=== PATIENT | male | born 1945 | race Caucasian/White ===

== ENCOUNTER 2017-03-16 12:20 | Inpatient (IN) | payer MEDICARE, OTHER ==
[2017-03-16] MEDS ORDERED: Ondansetron 4 MG/2 ML SDV IVPUSH STA (12:55)
[2017-03-16] MEDS ORDERED: Sodium Chloride 0.9% 1,000 ML IV SCH ×2 (13:00→18:15)
--- NOTE | 2017-03-16 13:02 | EDM.PDOC ---
ED HPI GENERAL MEDICAL PROBLEM - General Chief Complaint: Gastrointestinal Problem Stated Complaint: nausea/vomiting Time Seen by Provider: 03/16/17 12:47 Source of Information: Reports: Patient History Limitations: Reports: No Limitations - History of Present Illness INITIAL COMMENTS - FREE TEXT/NARRATIVE: Patient is a 71 year old male who presents to the ER with complaints of nausea, vomiting, and weakness. He reports that he first started feeling ill yesterday morning. He has been unable to eat or drink much. Has had a decreased appetite and hasn't been able to keep anything down except water yesterday and today. He reports he has vomited "numerous times." He also feels very weak. He hasn't been able to get out of bed since yesterday. Feel this has caused him to have a headache. Denies any fever or chills, but does report he woke up clammy last night. No blood in stool or vomit. No urinary symptoms. No recent illness or known exposure to ill people. Has not tried taking anything at home to relieve his symptoms. Onset Date: 03/15/17 Duration: Getting Worse Location: Reports: Generalized Improves with: Reports: None Worsens with: Reports: None Associated Symptoms: Reports: Headaches, Loss of Appetite, Nausea/Vomiting, Weakness. Denies: Confusion, Chest Pain, Cough, cough w sputum, Diaphoresis, Fever/Chills, Malaise, Shortness of Breath, Syncope Headache Pain Score (Numeric/FACES): 7 - Related Data Allergies Allergy/AdvReac Type Severity Reaction Status Date / Time No Known Allergies Allergy Verified 03/16/17 12:41 Home Meds: Home Meds . [No Known Home Meds] 03/16/17 [History] Past Medical History Cardiovascular History: Reports: Hypertension - Past Surgical History GI Surgical History: Reports: Cholecystectomy Musculoskeletal Surgical History: Reports: Other (See Below) Other Musculoskeletal Surgeries/Procedures:: TAILBONE REMOVAL, KNEE SURGERY Social & Family History - Tobacco Use Smoking Status *Q: Current Every Day Smoker Years of Tobacco use: 50 Packs/Tins Daily: 1.5 - Caffeine Use Caffeine Use: Reports: None - Recreational Drug Use Recreational Drug Use: No ED ROS GENERAL - Review of Systems Review Of Systems: See Below Constitutional: Reports: Weakness, Fatigue, Night Sweats, Decreased Appetite. Denies: Fever, Chills, Malaise, Diaphoresis HEENT: Reports: No Symptoms Respiratory: Reports: No Symptoms. Denies: Shortness of Breath Cardiovascular: Reports: No Symptoms. Denies: Chest Pain, Dyspnea on Exertion Endocrine: Reports: No Symptoms GI/Abdominal: Reports: Nausea, Vomiting. Denies: Abdominal Pain, Black Stool, Bloody Stool, Constipation, Diarrhea, Distension, Hematemesis, Hematochezia, Melena : Reports: No Symptoms. Denies: Dysuria, Frequency, Urgency Musculoskeletal: Reports: No Symptoms Skin: Reports: No Symptoms Neurological: Reports: Dizziness (lightheaded), Headache, Weakness (generalized) Psychiatric: Reports: No Symptoms Hematologic/Lymphatic: Reports: No Symptoms Immunologic: Reports: No Symptoms ED EXAM, GI/ABD - Physical Exam Exam: See Below Exam Limited By: No Limitations General Appearance: Alert, WD/WN, No Apparent Distress, Moderate Distress Eyes: Bilateral: Normal Appearance, EOMI Ears: Normal External Exam, Normal Canal, Hearing Grossly Normal, Normal TMs Nose: Normal Inspection, Normal Mucosa, No Blood Throat/Mouth: Normal Inspection, Normal Lips, Normal Teeth, Normal Gums, Normal Oropharynx, Normal Voice, No Airway Compromise, Other (dry mucous membranes) Head: Atraumatic, Normocephalic Neck: Normal Inspection, Supple, Non-Tender, Full Range of Motion Respiratory/Chest: No Respiratory Distress, Lungs Clear, Normal Breath Sounds, No Accessory Muscle Use, Chest Non-Tender Cardiovascular: Normal Peripheral Pulses, Regular Rate, Rhythm, No Edema, No Gallop, No JVD, No Murmur, No Rub GI/Abdominal Exam: Normal Bowel Sounds, Soft, Non-Tender, No Organomegaly, No Distention, No Abnormal Bruit, No Mass, Pelvis Stable (Male) Exam: Deferred Rectal (Males) Exam: Deferred Back Exam: Normal Inspection. No: CVA Tenderness (L), CVA Tenderness (R) Extremities: Normal Inspection, Normal Range of Motion, Non-Tender, Normal Capillary Refill, No Pedal Edema Neurological: Alert, Oriented, CN II-XII Intact, Normal Cognition, Normal Gait, Normal Reflexes, No Motor/Sensory Deficits Psychiatric: Normal Affect, Normal Mood Skin Exam: Warm, Dry, Intact, Normal Color, No Rash Lymphatic: No Adenopathy Course - Vital Signs Last Recorded V/S: Last Vital Signs Temp 99.1 F 03/17/17 04:00 Pulse 67 03/17/17 04:00 Resp 20 03/17/17 04:00 BP 154/88 H 03/17/17 04:00 Pulse Ox 93 L 03/17/17 04:00 - Orders/Labs/Meds Orders: Active Orders 24 hr Category Date Time Status Patient Status [ADT] Routine ADT 03/16/17 18:09 Active Oxygen Therapy [RC] .PRN Care 03/16/17 18:09 Active RT Aerosol Therapy [RC] .PRN Care 03/16/17 18:14 Active Up With Assistance [RC] .PRN Care 03/16/17 18:09 Active Vital Signs [RC] Q4H Care 03/16/17 18:09 Active Regular Diet [DIET] Diet 03/16/17 Dinner Active Abdomen Pelvis w Cont [CT] Stat Exams 03/16/17 14:59 Taken BMP [BASIC METABOLIC PANEL,BMP] [CHEM] DAILY Lab 03/17/17 05:00 Ordered BMP [BASIC METABOLIC PANEL,BMP] [CHEM] DAILY Lab 03/18/17 05:00 Ordered BMP [BASIC METABOLIC PANEL,BMP] [CHEM] DAILY Lab 03/19/17 05:00 Ordered CBC WITH AUTO DIFF [HEME] DAILY Lab 03/17/17 18:08 Ordered CBC WITH AUTO DIFF [HEME] DAILY Lab 03/18/17 18:08 Ordered CBC WITH AUTO DIFF [HEME] DAILY Lab 03/19/17 18:08 Ordered CRP [C-REACTIVE PROTEIN] [CHEM] DAILY Lab 03/17/17 05:00 Ordered CRP [C-REACTIVE PROTEIN] [CHEM] DAILY Lab 03/18/17 05:00 Ordered CRP [C-REACTIVE PROTEIN] [CHEM] DAILY Lab 03/19/17 05:00 Ordered CULTURE BLOOD [BC] Stat Lab 03/16/17 19:30 Received CULTURE BLOOD [BC] Stat Lab 03/16/17 19:35 Received Acetaminophen [Tylenol] Med 03/16/17 18:09 Active 650 mg PO Q4H PRN Albuterol/Ipratropium [DuoNeb 3.0-0.5 MG/3 ML] Med 03/16/17 18:09 Active 3 ml NEB Q4H PRN Docusate Sodium [Colace] Med 03/16/17 18:09 Active 100 mg PO BID PRN HYDROmorphone [Dilaudid] Med 03/16/17 18:09 Active 0.5 mg IVPUSH Q2H PRN Ibuprofen [Motrin] Med 03/16/17 18:09 Active 600 mg PO Q6H PRN Ondansetron [Zofran] Med 03/16/17 18:09 Active 4 mg IV Q6H PRN Polyethylene Glycol 3350 [MiraLAX] Med 03/16/17 18:09 Active 17 gm PO DAILY PRN Sodium Chloride 0.9% [Normal Saline] 1,000 ml Med 03/16/17 18:15 Active IV ASDIRECTED Temazepam [Restoril] Med 03/16/17 18:09 Active 15 mg PO BEDTIME PRN cefTRIAXone [Rocephin] Med 03/16/17 18:15 Active 1 gm IVPUSH Q24H Blood Culture x2 Reflex Set [OM.PC] Stat Oth 03/16/17 18:06 Ordered Resuscitation Status Routine Resus Stat 03/16/17 18:09 Ordered Medication Orders Acetaminophen (Tylenol) 650 mg PO Q4H PRN PRN Reason: Pain (Mild 1-3)/fever Last Admin: 03/16/17 20:05 Dose: 650 mg Albuterol/Ipratropium (Duoneb 3.0-0.5 Mg/3 Ml) 3 ml NEB Q4H PRN PRN Reason: Shortness Of Breath/wheezing Albuterol/Ipratropium (Duoneb 3.0-0.5 Mg/3 Ml) 3 ml NEB 0800,1200,1600,2000 [facility] Last Admin: 03/16/17 22:31 Dose: 3 ml Azithromycin (Zithromax) 500 mg PO DAILY [facility] Last Admin: 03/16/17 18:45 Dose: 500 mg Ceftriaxone Sodium (Rocephin) 1 gm IVPUSH Q24H [facility] Last Admin: 03/16/17 18:45 Dose: 1 gm Docusate Sodium (Colace) 100 mg PO BID PRN PRN Reason: Constipation Enoxaparin Sodium (Lovenox) 40 mg SUBCUT Q24H [facility] Last Admin: 03/16/17 20:06 Dose: 40 mg Hydromorphone HCl (Dilaudid) 0.5 mg IVPUSH Q2H PRN PRN Reason: Pain (severe 7-10) Sodium Chloride (Normal Saline) 1,000 mls @ 75 mls/hr IV ASDIRECTED THONY Last Admin: 03/16/17 20:07 Dose: 75 mls/hr Ibuprofen (Motrin) 600 mg PO Q6H PRN PRN Reason: Pain (mild 1-3) Nicotine (Habitrol) 21 mg TRDERM DAILY@1600 [facility] Ondansetron HCl (Zofran) 4 mg IV Q6H PRN PRN Reason: Nausea/Vomiting Polyethylene Glycol (Miralax) 17 gm PO DAILY PRN PRN Reason: Constipation Temazepam (Restoril) 15 mg PO BEDTIME PRN PRN Reason: Sleep Labs: Laboratory Tests 03/16/17 03/16/17 03/16/17 Range/Units 13:05 13:05 14:45 WBC 10.9 H (5.0-10.0) 10^3/uL RBC 4.81 (4.50-6.00) 10^6/uL Hgb 15.8 (14.0-18.0) g/dL Hct 46.4 (40.0-54.0) % MCV 96.5 H (82.0-94.0) fL MCH 32.8 H (27.0-32.0) pg MCHC 34.1 (33.0-38.0) g/dL RDW Coeff of Inés 14.9 (11.0-15.0) % Plt Count 181 (150-400) 10^3/uL Neut % (Auto) 80.1 (35-85) % Lymph % (Auto) 11.0 (10-55) % [place] % (Auto) 8.6 (0-16) % Eos % (Auto) 0.2 (0-5) % Baso % (Auto) 0.1 (0-3) % Neut # (Auto) 8.70 H (1.80-7.00) 10^3/uL Lymph # (Auto) 1.20 (1.00-4.80) 10^3/uL [place] # (Auto) 0.93 H (0.00-0.80) 10^3/uL Eos # (Auto) 0.02 (0.00-0.45) 10^3/uL Baso # (Auto) 0.01 10^3/uL Sodium 135 L (136-145) mEq/L Potassium 3.9 (3.5-5.0) mEq/L Chloride 98 (98-106) mEq/L Carbon Dioxide 25 (21-32) mmol/L BUN 13 (7-18) mg/dL Creatinine 1.0 (0.7-1.3) mg/dL Est Cr Clr Drug Dosing 74.37 mL/min Estimated GFR (MDRD) > 60 (>=60) mL/min Glucose 112 H (75-99) mg/dL Calcium 8.9 (8.4-10.1) mg/dL Total Bilirubin 0.9 (0.0-1.0) mg/dL AST 19 (15-37) U/L ALT 24 (12-78) U/L Alkaline Phosphatase 88 (46-116) U/L Troponin I < 0.017 (0.00-0.06) ng/mL Total Protein 7.3 (6.4-8.2) g/dL Albumin 3.3 L (3.4-5.0) g/dL Urine Color Yellow (YELLOW) Urine Appearance Clear (CLEAR) Urine pH 7.0 (4.5-8.0) Ur Specific [place] 1.015 (1.003-1.020) Urine Protein Negative (NEGATIVE) mg/dL Urine Glucose (UA) Negative (NEGATIVE) mg/dL Urine Ketones Negative (NEGATIVE) mg/dL Urine Occult Blood Small H (NEGATIVE) Urine Nitrite Negative (NEGATIVE) Urine Bilirubin Negative (NEGATIVE) Urine Urobilinogen 1.0 (0.2-1.0) EU/dL Ur Leukocyte Esterase Trace H (NEGATIVE) Urine RBC 5-10 H (0-5) /HPF Urine WBC 0-5 (0-5) /HPF Ur Epithelial Cells Occasional H (NOT SEEN) /HPF Meds: Medications Generic Name Dose Route Start Last Admin Trade Name Freq PRN Reason Stop Dose Admin Acetaminophen 650 mg 03/16/17 18:09 03/16/17 20:05 Tylenol PO 650 mg Q4H PRN Administration Pain (Mild 1-3)/fever Albuterol/Ipratropium 3 ml 03/16/17 18:09 Duoneb 3.0-0.5 Mg/3 Ml NEB Q4H PRN Shortness Of Breath/wheezing Albuterol/Ipratropium 3 ml 03/16/17 20:23 03/16/17 22:31 Duoneb 3.0-0.5 Mg/3 Ml NEB 3 ml 0800,1200,1600,2000 THONY Administration Azithromycin 500 mg 03/16/17 18:15 03/16/17 18:45 Zithromax PO 500 mg DAILY THONY Administration Ceftriaxone Sodium 1 gm 03/16/17 18:15 03/16/17 18:45 Rocephin IVPUSH 1 gm Q24H THONY Administration Docusate Sodium 100 mg 03/16/17 18:09 Colace PO BID PRN Constipation Enoxaparin Sodium 40 mg 03/16/17 20:00 03/16/17 20:06 Lovenox SUBCUT 40 mg Q24H THONY Administration Hydromorphone HCl 0.5 mg 03/16/17 18:09 Dilaudid IVPUSH Q2H PRN Pain (severe 7-10) Sodium Chloride 1,000 mls @ 75 mls/hr 03/16/17 18:15 03/16/17 20:07 Normal Saline IV 75 mls/hr ASDIRECTED THONY Administration Ibuprofen 600 mg 03/16/17 18:09 Motrin PO Q6H PRN Pain (mild 1-3) Nicotine 21 mg 03/17/17 16:00 Habitrol TRDERM DAILY@1600 THONY Ondansetron HCl 4 mg 03/16/17 18:09 Zofran IV Q6H PRN Nausea/Vomiting Polyethylene Glycol 17 gm 03/16/17 18:09 Miralax PO DAILY PRN Constipation Temazepam 15 mg 03/16/17 18:09 Restoril PO BEDTIME PRN Sleep Discontinued Medications Generic Name Dose Route Start Last Admin Trade Name Freq PRN Reason Stop Dose Admin Sodium Chloride 1,000 mls @ 999 mls/hr 03/16/17 13:00 03/16/17 13:20 Normal Saline IV 999 mls/hr ASDIRECTED THONY Administration Iopamidol 100 ml 03/16/17 15:28 03/16/17 15:44 Isovue-300 (61%) IVPUSH 03/16/17 15:29 100 ml ONETIME ONE Administration Nicotine 21 mg 03/16/17 13:46 03/16/17 16:15 Habitrol TRDERM 03/16/17 13:47 21 mg ONETIME ONE Administration Ondansetron HCl 4 mg 03/16/17 12:55 03/16/17 13:22 Zofran IVPUSH 03/16/17 12:56 4 mg NOW STA Administration - Radiology Interpretation Free Text/Narrative:: Atelectatic changes over the lung bases on either side with a ground-glass appearance suggesting diffuse pneumonitis to the lung bases. CT Results Date: 03/16/17 CT Results Time: 16:53 - Re-Assessments/Exams Free Text/Narrative Re-Assessment/Exam: 03/16/17 15:05 CT Abdomen/Pelvis ordered. Patient has leukocytosis, continued nausea, and a large abdominal hernia. 03/16/17 18:03 Patient will be admitted as acute. Patient has been weak, lightheaded, 94% O2 Sat on RA, and CT shows bilateral pneumonitis. Patient feels too weak to go home. Departure - Departure Time of Disposition: 17:56 Disposition: Admitted As Inpatient 66 Condition: Fair Clinical Impression: Vomiting Pneumonia Qualifiers: Pneumonia type: due to unspecified organism Laterality: bilateral Lung location : lower lobe of lung Qualified Code(s): J18.9 - Pneumonia, unspecified organism - Discharge Information - Problem List & Annotations (1) Generalized weakness SNOMED Code(s): 04997950 Code(s): R53.1 - WEAKNESS Status: Acute Priority: Medium Current Visit : Yes (2) Pneumonia SNOMED Code(s): 501610426 Code(s): J18.9 - PNEUMONIA, UNSPECIFIED ORGANISM Status: Acute Priority: High Current Visit: Yes Qualifiers: Pneumonia type: due to unspecified organism Laterality: bilateral Lung location: lower lobe of lung Qualified Code(s): J18.9 - Pneumonia, unspecified organism (3) Vomiting SNOMED Code(s): 329152898 Code(s): R11.10 - VOMITING, UNSPECIFIED Status: Acute Current Visit: Yes - Problem List Review Problem List Initiated/Reviewed/Updated: Yes - My Orders Last 24 Hours: My Active Orders 03/16/17 14:59 Abdomen Pelvis w Cont [CT] Stat 03/16/17 18:06 Blood Culture x2 Reflex Set [OM.PC] Stat 03/16/17 18:09 Patient Status [ADT] Routine Oxygen Therapy [RC] .PRN Up With Assistance [RC] .PRN Vital Signs [RC] Q4H Acetaminophen [Tylenol] 650 mg PO Q4H PRN Albuterol/Ipratropium [DuoNeb 3.0-0.5 MG/3 ML] 3 ml NEB Q4H PRN Docusate Sodium [Colace] 100 mg PO BID PRN HYDROmorphone [Dilaudid] 0.5 mg IVPUSH Q2H PRN Ibuprofen [Motrin] 600 mg PO Q6H PRN Ondansetron [Zofran] 4 mg IV Q6H PRN Polyethylene Glycol 3350 [MiraLAX] 17 gm PO DAILY PRN Temazepam [Restoril] 15 mg PO BEDTIME PRN Resuscitation Status Routine 03/16/17 18:14 RT Aerosol Therapy [RC] .PRN 03/16/17 18:15 Sodium Chloride 0.9% [Normal Saline] 1,000 ml IV ASDIRECTED cefTRIAXone [Rocephin] 1 gm IVPUSH Q24H 03/16/17 19:30 CULTURE BLOOD [BC] Stat 03/16/17 19:35 CULTURE BLOOD [BC] Stat 03/16/17 Dinner Regular Diet [DIET] 03/17/17 05:00 BMP [BASIC METABOLIC PANEL,BMP] [CHEM] DAILY CRP [C-REACTIVE PROTEIN] [CHEM] DAILY 03/17/17 18:08 CBC WITH AUTO DIFF [HEME] DAILY 03/18/17 05:00 BMP [BASIC METABOLIC PANEL,BMP] [CHEM] DAILY CRP [C-REACTIVE PROTEIN] [CHEM] DAILY 03/18/17 18:08 CBC WITH AUTO DIFF [HEME] DAILY 03/19/17 05:00 BMP [BASIC METABOLIC PANEL,BMP] [CHEM] DAILY CRP [C-REACTIVE PROTEIN] [CHEM] DAILY 03/19/17 18:08 CBC WITH AUTO DIFF [HEME] DAILY - Assessment/Plan Last 24 Hours: My Active Orders 03/16/17 14:59 Abdomen Pelvis w Cont [CT] Stat 03/16/17 18:06 Blood Culture x2 Reflex Set [OM.PC] Stat 03/16/17 18:09 Patient Status [ADT] Routine Oxygen Therapy [RC] .PRN Up With Assistance [RC] .PRN Vital Signs [RC] Q4H Acetaminophen [Tylenol] 650 mg PO Q4H PRN Albuterol/Ipratropium [DuoNeb 3.0-0.5 MG/3 ML] 3 ml NEB Q4H PRN Docusate Sodium [Colace] 100 mg PO BID PRN HYDROmorphone [Dilaudid] 0.5 mg IVPUSH Q2H PRN Ibuprofen [Motrin] 600 mg PO Q6H PRN Ondansetron [Zofran] 4 mg IV Q6H PRN Polyethylene Glycol 3350 [MiraLAX] 17 gm PO DAILY PRN Temazepam [Restoril] 15 mg PO BEDTIME PRN Resuscitation Status Routine 03/16/17 18:14 RT Aerosol Therapy [RC] .PRN 03/16/17 18:15 Sodium Chloride 0.9% [Normal Saline] 1,000 ml IV ASDIRECTED cefTRIAXone [Rocephin] 1 gm IVPUSH Q24H 03/16/17 19:30 CULTURE BLOOD [BC] Stat 03/16/17 19:35 CULTURE BLOOD [BC] Stat 03/16/17 Dinner Regular Diet [DIET] 03/17/17 05:00 BMP [BASIC METABOLIC PANEL,BMP] [CHEM] DAILY CRP [C-REACTIVE PROTEIN] [CHEM] DAILY 03/17/17 18:08 CBC WITH AUTO DIFF [HEME] DAILY 03/18/17 05:00 BMP [BASIC METABOLIC PANEL,BMP] [CHEM] DAILY CRP [C-REACTIVE PROTEIN] [CHEM] DAILY 03/18/17 18:08 CBC WITH AUTO DIFF [HEME] DAILY 03/19/17 05:00 BMP [BASIC METABOLIC PANEL,BMP] [CHEM] DAILY CRP [C-REACTIVE PROTEIN] [CHEM] DAILY 03/19/17 18:08 CBC WITH AUTO DIFF [HEME] DAILY Assessment:: Bilateral Lower Lobe Pneumonia Plan: SEE RN NOTE FOR PFSH Admit to acute without tele. Start IV antibiotics and duo nebs PRN.
[2017-03-16 13:24] LABS: CHLORIDE,CL 98 mEq/L (98-106)
[2017-03-16 13:25] LABS: SODIUM,NA 135 mEq/L (136-145)
[2017-03-16] MEDS ORDERED: Nicotine 21 MG/24 Hr Patch TRDERM ONE (13:46)
[2017-03-16] MEDS ORDERED: Iopamidol 612 MG/ML 100 ML Bottle IVPUSH ONE (15:28)
[2017-03-16] MEDS ORDERED: Polyethylene Glycol 3350 Powder 17 GM Packet PO PRN (18:09)
[2017-03-16] MEDS ORDERED: Ibuprofen 200 MG Tab PO PRN (18:09)
[2017-03-16] MEDS ORDERED: Temazepam 15 MG Cap PO PRN (18:09)
[2017-03-16] MEDS ORDERED: Ondansetron 4 MG/2 ML SDV IV PRN (18:09)
[2017-03-16] MEDS ORDERED: HYDROmorphone 1 MG/ML Syringe IVPUSH PRN (18:09)
[2017-03-16] MEDS ORDERED: Docusate Sodium 100 MG Cap PO PRN (18:09)
[2017-03-16] MEDS ORDERED: Albuterol/Ipratropium 3.0-0.5 MG/3 ML Neb Soln NEB PRN (18:09)
[2017-03-16] MEDS ORDERED: cefTRIAXone 1 GM Vial IVPUSH SCH (18:15)
[2017-03-16] MEDS: Azithromycin 250 MG Tab PO SCH (18:45)
[2017-03-16] MEDS ORDERED: Enoxaparin 40 MG/0.4 ML Syringe SUBCUT SCH (20:00)
[2017-03-16] MEDS: Acetaminophen 325 MG Tab PO PRN (20:05)
[2017-03-16] MEDS: Sodium Chloride 0.9% 1,000 ML IV SCH (20:07)
[2017-03-16] MEDS: Albuterol/Ipratropium 3.0-0.5 MG/3 ML Neb Soln NEB SCH (22:31)
--- NOTE | 2017-03-17 05:24 | PCM.PN ---
- General Info Date of Service: 03/17/17 Admission Dx/Problem (Free Text): Bilateral Pneumonia Subjective Update: No acute issues overnight. Low grade temperature throughout night. Patient reports he now has productive cough. Some shortness of breath. O2 sat 93-94% on RA. Nausea has improved. Has not vomited since admission. On IV and PO antibiotics (Rocephin and azithromax). Duo nebs QID. Still has generalized weakness. Nursing reports he is unsteady on his feet. Functional Status: Reports: Pain Controlled, Tolerating Diet, Ambulating, Urinating, New Symptoms (productive cough, fever) - Review of Systems General: Reports: Fever, Weakness, Fatigue. Denies: Malaise, Chills HEENT: Reports: No Symptoms. Denies: Headaches, Sinus Congestion Pulmonary: Reports: Shortness of Breath (with exertion), Cough, Sputum. Denies : Pleuritic Chest Pain, Hemoptysis, Wheezing Cardiovascular: Reports: Dyspnea on Exertion. Denies: Chest Pain, Lightheadedness Gastrointestinal: Reports: No Symptoms. Denies: Abdominal Pain, Diarrhea, Nausea, Vomiting Genitourinary: Reports: No Symptoms. Denies: Dysuria, Frequency, Urgency Musculoskeletal: Reports: No Symptoms (generalized weakness) Skin: Reports: No Symptoms Neurological: Reports: No Symptoms. Denies: Confusion, Dizziness, Headache Psychiatric: Reports: No Symptoms - Patient Data Vitals - Most Recent: Last Vital Signs Temp 99.1 F 03/17/17 04:00 Pulse 67 03/17/17 04:00 Resp 20 03/17/17 04:00 BP 154/88 H 03/17/17 04:00 Pulse Ox 93 L 03/17/17 04:00 Weight - Most Recent: 208 lb 1.6 oz Lab Results Last 24 Hours: Laboratory Results - last 24 hr 03/16/17 03/16/17 Range/Units 19:30 19:35 Lactic Acid 1.0 (0.4-2.0) mmol/L C-Reactive Protein 0.8 (0.2-0.8) mg/dL Med Orders - Current: Current Medications Acetaminophen (Tylenol) 650 mg PO Q4H PRN PRN Reason: Pain (Mild 1-3)/fever Last Admin: 03/16/17 20:05 Dose: 650 mg Albuterol/Ipratropium (Duoneb 3.0-0.5 Mg/3 Ml) 3 ml NEB Q4H PRN PRN Reason: Shortness Of Breath/wheezing Albuterol/Ipratropium (Duoneb 3.0-0.5 Mg/3 Ml) 3 ml NEB 0800,1200,1600,2000 [facility] Last Admin: 03/16/17 22:31 Dose: 3 ml Azithromycin (Zithromax) 500 mg PO DAILY [facility] Last Admin: 03/16/17 18:45 Dose: 500 mg Ceftriaxone Sodium (Rocephin) 1 gm IVPUSH Q24H [facility] Last Admin: 03/16/17 18:45 Dose: 1 gm Docusate Sodium (Colace) 100 mg PO BID PRN PRN Reason: Constipation Enoxaparin Sodium (Lovenox) 40 mg SUBCUT Q24H [facility] Last Admin: 03/16/17 20:06 Dose: 40 mg Hydromorphone HCl (Dilaudid) 0.5 mg IVPUSH Q2H PRN PRN Reason: Pain (severe 7-10) Sodium Chloride (Normal Saline) 1,000 mls @ 75 mls/hr IV ASDIRECTED [facility] Last Admin: 03/16/17 20:07 Dose: 75 mls/hr Ibuprofen (Motrin) 600 mg PO Q6H PRN PRN Reason: Pain (mild 1-3) Nicotine (Habitrol) 21 mg TRDERM DAILY@1600 [facility] Ondansetron HCl (Zofran) 4 mg IV Q6H PRN PRN Reason: Nausea/Vomiting Polyethylene Glycol (Miralax) 17 gm PO DAILY PRN PRN Reason: Constipation Temazepam (Restoril) 15 mg PO BEDTIME PRN PRN Reason: Sleep Discontinued Medications Sodium Chloride (Normal Saline) 1,000 mls @ 999 mls/hr IV ASDIRECTED [facility] Last Admin: 03/16/17 13:20 Dose: 999 mls/hr Iopamidol (Isovue-300 (61%)) 100 ml IVPUSH ONETIME ONE Stop: 03/16/17 15:29 Last Admin: 03/16/17 15:44 Dose: 100 ml Nicotine (Habitrol) 21 mg TRDERM ONETIME ONE Stop: 03/16/17 13:47 Last Admin: 03/16/17 16:15 Dose: 21 mg Ondansetron HCl (Zofran) 4 mg IVPUSH NOW STA Stop: 03/16/17 12:56 Last Admin: 03/16/17 13:22 Dose: 4 mg - Exam Quality Assessment: DVT Prophylaxis General: Alert, Oriented, No Acute Distress HEENT: Pupils Equal, Pupils Reactive, EOMI, Mucous Membr. Moist/[place] Neck: Supple, Trachea Midline Lungs: Normal Respiratory Effort, Decreased Breath Sounds (bilateral bases), Other (productive cough) Cardiovascular: Regular Rate, Regular Rhythm, No Murmurs GI/Abdominal Exam: Normal Bowel Sounds, Soft, Non-Tender, No Organomegaly, No Distention, No Abnormal Bruit, No Mass, Pelvis Stable (Male) Exam: Deferred Back Exam: Normal Inspection, Full Range of Motion Extremities: Normal Inspection, Normal Range of Motion, Non-Tender, No Pedal Edema, Normal Capillary Refill Skin: Warm, Dry, Intact Neurological: No New Focal Deficit, Normal Speech, Strength Equal Bilateral, Sensation Intact, Cranial Nerves Intact, Other (unsteady on his feet, generalized weakness) Psy/Mental Status: Alert, Normal Affect, Normal Mood - Problem List & Annotations (1) Generalized weakness SNOMED Code(s): 02639855 Code(s): R53.1 - WEAKNESS Status: Acute Priority: Medium Current Visit : Yes (2) Pneumonia SNOMED Code(s): 611800989 Code(s): J18.9 - PNEUMONIA, UNSPECIFIED ORGANISM Status: Acute Priority: High Current Visit: Yes Qualifiers: Pneumonia type: due to unspecified organism Laterality: bilateral Lung location: lower lobe of lung Qualified Code(s): J18.9 - Pneumonia, unspecified organism (3) Vomiting SNOMED Code(s): 943711252 Code(s): R11.10 - VOMITING, UNSPECIFIED Status: Acute Priority: Low Current Visit: Yes Annotation/Comment:: Resolved - Problem List Review Problem List Initiated/Reviewed/Updated: Yes - Assessment Assessment:: Bilateral Pneumonia Generalized Weakness Leukocytosis Nausea & Vomiting- resolved - Plan Plan:: Will culture sputum. Sputum culture showing gram positive cocci. Continue current treatment, Rocephin, azithromax, and duo nebs.
[2017-03-17 07:25] LABS: CHLORIDE,CL 103 mEq/L (98-106); SODIUM,NA 138 mEq/L (136-145)
[2017-03-17] MEDS: Azithromycin 250 MG Tab PO SCH (07:30)
[2017-03-17] MEDS: Albuterol/Ipratropium 3.0-0.5 MG/3 ML Neb Soln NEB SCH ×3 (07:31→15:32)
[2017-03-17] MEDS: Acetaminophen 325 MG Tab PO PRN ×3 (07:45→15:34)
[2017-03-17] MEDS: Sodium Chloride 0.9% 1,000 ML IV SCH (09:21)
--- NOTE | 2017-03-17 14:15 | PCM.DCSUM1 ---
Discharge Summary - Hospital Course HPI Initial Comments: Patient admitted 03/16/2017 with bilateral pneumonia. Originally presented to the ER with complaints of nausea, vomiting, and generalized weakness. He reports he began feeling ill the morning of 03/15/2017. He was unable to eat or drink without vomiting. He reported he had vomited "numerous times" and was unable to keep any fluids down. He also complained of a headache at the time of admission, but reported he had been lying in bed for two days and felt this was related to neck strain. At ER presentation, neuro exam was WNL except headache and generalized weakness. Patient was started on IV antibiotics for bilateral lower lobe pneumonia and was admitted. Patient's headache resolved following IVF bolus. Throughout the evening patient developed a productive cough. Sputum was cultured showing gram positive cocci. This morning, nursing called with concerns of gait ataxia. They reported he was getting increasingly unsteady on his feet and was starting to lean to his left when ambulating. I then went to patient's bedside. Neuro assessment was WNL except bilateral upper extremity ataxia, which was a change from neuro assessment on admission. NIH 2. Did not visualize ambulation. Head CT was ordered. 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 The radiologist reported the affected area had mass like effect, crossed midline, and was heterogeneous in appearance. He suggested MRI. [facility] was called. Patient was accepted for transfer by Dr. Zafar. [facility] agreed to transfer ALS due to neurological deficit of gait ataxia. Throughout hospital stay, patient was hemodynamically stable, alert and oriented, and in no respiratory distress. After receiving head CT results, I spoke with the patient and his and discussed findings. Patient and agreeable for transfer to [place]. Risks and benefits of transfer discussed with patient. Risks of transfer include vehicle crash, , neurological deterioration, respiratory distress. Risks of non- transfer include , neurological deterioration, respiratory distress, no neurosurgeon/ specialized care. Benefits of transfer include specialized neurosurgical evaluation and care, and higher level of care. Benefits of non- transfer include staying closer to home and familiar environment. After discussion of risks vs. benefits, patient is agreeable to transfer to [facility] via ALS ground transportation. - Discharge Data Discharge Date: 03/17/17 Discharge Disposition: DC/Tfer to Acute Hospital 02 Condition: Fair - Discharge Diagnosis/Problem(s) (1) Generalized weakness SNOMED Code(s): 67516051 ICD Code: R53.1 - WEAKNESS Status: Acute Priority: Medium Current Visit : Yes (2) Pneumonia SNOMED Code(s): 935579408 ICD Code: J18.9 - PNEUMONIA, UNSPECIFIED ORGANISM Status: Acute Priority : High Current Visit: Yes Qualifiers: Pneumonia type: due to unspecified organism Laterality: bilateral Lung location: lower lobe of lung Qualified Code(s): J18.9 - Pneumonia, unspecified organism (3) Vomiting SNOMED Code(s): 042325787 ICD Code: R11.10 - VOMITING, UNSPECIFIED Status: Acute Priority: Low Current Visit: Yes Problem Details: Resolved (4) Ataxic gait SNOMED Code(s): 61226522 ICD Code: R26.0 - ATAXIC GAIT Status: Acute Current Visit: Yes (5) Cerebellar mass SNOMED Code(s): 14601581 ICD Code: G93.89 - OTHER SPECIFIED DISORDERS OF BRAIN Status: Acute Priority: High Current Visit: Yes - Patient Instructions Diet: NPO Activity: Bedrest Driving: Do Not Drive - Discharge Plan Home Medications: Home Meds . [No Known Home Meds] 03/16/17 [History] Forms: ED Department Discharge - General Info Date of Service: 03/17/17 Admission Dx/Problem (Free Text: Bilateral Pneumonia Right Cerebellar Mass Gait Ataxia Generalized Weakness Functional Status: Reports: Pain Controlled, Urinating, New Symptoms (gait ataxia). Denies: Tolerating Diet (decreased appetite, slightly nauseated, no vomiting), Ambulating (difficulty with ambulating, unsteady) - Review of Systems General: Reports: Fever (low grade), Weakness, Fatigue. Denies: Appetite (poor appetite) HEENT: Reports: Headaches (slight posterior headache). Denies: Dysphasia, Ear Pain, Eye Pain, Post Nasal Drip, Sinus Congestion, Sore Throat, Rhinitis, Visual Changes Pulmonary: Reports: Cough, Sputum. Denies: Shortness of Breath, Pleuritic Chest Pain, Hemoptysis, Wheezing Cardiovascular: Reports: Dyspnea on Exertion. Denies: Chest Pain, Palpitations , Orthopnea, PND, Edema, Lightheadedness Gastrointestinal: Reports: Decreased Appetite, Nausea. Denies: Abdominal Pain, Constipation, Diarrhea, Difficulty Swallowing, Flatus, Hematochezia, Melena, Vomiting Genitourinary: Reports: No Symptoms. Denies: Dysuria, Frequency, Pain, Urgency , Hematuria, Retention Musculoskeletal: Reports: Neck Pain, Other (upper extremity ataxia). Denies: Shoulder Pain, Arm Pain, Back Pain, Leg Pain, Joint Pain Skin: Reports: No Symptoms. Denies: Diaphoresis Neurological: Reports: Headache (slight posterior headache), Difficulty Walking (gait ataxia, leans to left), Weakness, Gait Disturbance (gait ataxia). Denies : Confusion, Dizziness, Numbness, Paresthesia, Pre-Existing Deficit, Seizure, Syncope, Tingling, Tremors, Trouble Speaking, Change in Speech - Patient Data Vitals - Most Recent: Last Vital Signs Temp 98.1 F 03/17/17 11:57 Pulse 67 03/17/17 11:57 Resp 20 03/17/17 11:57 BP 152/89 H 03/17/17 11:57 Pulse Ox 96 03/17/17 11:57 Weight - Most Recent: 208 lb 1.6 oz I&O - Last 24 hours: Intake & Output 03/16/17 03/17/17 03/17/17 22:59 06:59 14:59 Intake Total 1192 Balance 1192 Lab Results - Last 24 hrs: Laboratory Results - last 24 hr 03/16/17 03/16/17 03/17/17 Range/Units 19:30 19:35 06:50 WBC (5.0-10.0) 10^3/uL RBC (4.50-6.00) 10^6/uL Hgb (14.0-18.0) g/dL Hct (40.0-54.0) % MCV (82.0-94.0) fL MCH (27.0-32.0) pg MCHC (33.0-38.0) g/dL RDW Coeff of Inés (11.0-15.0) % Plt Count (150-400) 10^3/uL Neut % (Auto) (35-85) % Lymph % (Auto) (10-55) % [place] % (Auto) (0-16) % Eos % (Auto) (0-5) % Baso % (Auto) (0-3) % Neut # (Auto) (1.80-7.00) 10^3/uL Lymph # (Auto) (1.00-4.80) 10^3/uL [place]oke # (Auto) (0.00-0.80) 10^3/uL Eos # (Auto) (0.00-0.45) 10^3/uL Baso # (Auto) 10^3/uL Sodium 138 (136-145) mEq/L Potassium 3.8 (3.5-5.0) mEq/L Chloride 103 (98-106) mEq/L Carbon Dioxide 24 (21-32) mmol/L BUN 13 (7-18) mg/dL Creatinine 1.1 (0.7-1.3) mg/dL Est Cr Clr Drug Dosing 67.61 mL/min Estimated GFR (MDRD) > 60 (>=60) mL/min Glucose 112 H (75-99) mg/dL Lactic Acid 1.0 (0.4-2.0) mmol/L Calcium 8.5 (8.4-10.1) mg/dL C-Reactive Protein 0.8 1.2 H (0.2-0.8) mg/dL 03/17/17 Range/Units 06:50 WBC 9.3 (5.0-10.0) 10^3/uL RBC 4.75 (4.50-6.00) 10^6/uL Hgb 15.6 (14.0-18.0) g/dL Hct 46.5 (40.0-54.0) % MCV 97.9 H (82.0-94.0) fL MCH 32.8 H (27.0-32.0) pg MCHC 33.5 (33.0-38.0) g/dL RDW Coeff of Inés 15.2 H (11.0-15.0) % Plt Count 187 (150-400) 10^3/uL Neut % (Auto) 73.5 (35-85) % Lymph % (Auto) 16.5 (10-55) % [place]oke % (Auto) 9.6 (0-16) % Eos % (Auto) 0.2 (0-5) % Baso % (Auto) 0.2 (0-3) % Neut # (Auto) 6.86 (1.80-7.00) 10^3/uL Lymph # (Auto) 1.54 (1.00-4.80) 10^3/uL [place]oke # (Auto) 0.90 H (0.00-0.80) 10^3/uL Eos # (Auto) 0.02 (0.00-0.45) 10^3/uL Baso # (Auto) 0.02 10^3/uL Sodium (136-145) mEq/L Potassium (3.5-5.0) mEq/L Chloride (98-106) mEq/L Carbon Dioxide (21-32) mmol/L BUN (7-18) mg/dL Creatinine (0.7-1.3) mg/dL Est Cr Clr Drug Dosing mL/min Estimated GFR (MDRD) (>=60) mL/min Glucose (75-99) mg/dL Lactic Acid (0.4-2.0) mmol/L Calcium (8.4-10.1) mg/dL C-Reactive Protein (0.2-0.8) mg/dL SULLY Results - Last 24 hrs: Microbiology 03/17/17 05:25 Gram Stain - Final Sputum - Expectorated Med Orders - Current: Current Medications Acetaminophen (Tylenol) 650 mg PO Q4H PRN PRN Reason: Pain (Mild 1-3)/fever Last Admin: 03/17/17 11:50 Dose: 650 mg Albuterol/Ipratropium (Duoneb 3.0-0.5 Mg/3 Ml) 3 ml NEB Q4H PRN PRN Reason: Shortness Of Breath/wheezing Albuterol/Ipratropium (Duoneb 3.0-0.5 Mg/3 Ml) 3 ml NEB 0800,1200,1600,2000 [facility] Last Admin: 03/17/17 11:50 Dose: 3 ml Azithromycin (Zithromax) 500 mg PO DAILY [facility] Last Admin: 03/17/17 07:30 Dose: 500 mg Ceftriaxone Sodium (Rocephin) 1 gm IVPUSH Q24H [facility] Last Admin: 03/16/17 18:45 Dose: 1 gm Docusate Sodium (Colace) 100 mg PO BID PRN PRN Reason: Constipation Hydromorphone HCl (Dilaudid) 0.5 mg IVPUSH Q2H PRN PRN Reason: Pain (severe 7-10) Sodium Chloride (Normal Saline) 1,000 mls @ 75 mls/hr IV ASDIRECTED [facility] Last Admin: 03/17/17 09:21 Dose: 75 mls/hr Ibuprofen (Motrin) 600 mg PO Q6H PRN PRN Reason: Pain (mild 1-3) Nicotine (Habitrol) 21 mg TRDERM DAILY@1600 THONY Ondansetron HCl (Zofran) 4 mg IV Q6H PRN PRN Reason: Nausea/Vomiting Polyethylene Glycol (Miralax) 17 gm PO DAILY PRN PRN Reason: Constipation Temazepam (Restoril) 15 mg PO BEDTIME PRN PRN Reason: Sleep Discontinued Medications Enoxaparin Sodium (Lovenox) 40 mg SUBCUT Q24H [facility] Last Admin: 03/16/17 20:06 Dose: 40 mg Sodium Chloride (Normal Saline) 1,000 mls @ 999 mls/hr IV ASDIRECTED [facility] Last Admin: 03/16/17 13:20 Dose: 999 mls/hr Iopamidol (Isovue-300 (61%)) 100 ml IVPUSH ONETIME ONE Stop: 03/16/17 15:29 Last Admin: 03/16/17 15:44 Dose: 100 ml Nicotine (Habitrol) 21 mg TRDERM ONETIME ONE Stop: 03/16/17 13:47 Last Admin: 03/16/17 16:15 Dose: 21 mg Ondansetron HCl (Zofran) 4 mg IVPUSH NOW STA Stop: 03/16/17 12:56 Last Admin: 03/16/17 13:22 Dose: 4 mg - Exam General: Reports: Alert, Oriented, Cooperative, No Acute Distress HEENT: Reports: Pupils Equal, Pupils Reactive, EOMI, Mucous Membr. Moist/[place] Neck: Reports: Supple, Trachea Midline Lungs: Reports: Clear to Auscultation, Normal Respiratory Effort Cardiovascular: Reports: Regular Rate, Regular Rhythm GI/Abdominal Exam: Normal Bowel Sounds, Soft, Non-Tender, No Organomegaly, No Distention, No Abnormal Bruit, No Mass, Pelvis Stable. No: Distended, Guarding , Rigid (Male) Exam: Deferred Rectal (Males) Exam: Deferred Back Exam: Reports: Normal Inspection, Full Range of Motion. Denies: CVA Tenderness (L), CVA Tenderness (R) Extremities: Normal Inspection, Normal Range of Motion, Non-Tender, No Pedal Edema, Normal Capillary Refill Skin: Reports: Warm, Dry, Intact Neurological: Reports: Normal Speech, Normal Tone, Strength Equal Bilateral, Reflexes Equal Bilateral, Sensation Intact, Cranial Nerves Intact, Other ( ataxia to BUE, gait ataxia). Denies: Normal Gait Psy/Mental Status: Reports: Alert, Normal Affect, Normal Mood, Other (tearful) *Q Meaningful Use (DIS) - VTE *Q VTE Criteria *Q: - Stroke *Q Stroke Criteria *Q: - AMI *Q AMI Criteria *Q:
[2017-03-17] MEDS ORDERED: Nicotine 21 MG/24 Hr Patch TRDERM SCH ×2 (16:00)
== END 2017-03-17 15:45 | DRG 195 ==
LOC: CC.ED 12:20 → CC.MS 18:09 → UNDOADMIN 18:15 → CC.MS 18:15 → UNDODISIN 03-17 15:45
PROVIDERS: ADMIT Nurse Practitioner Family; ATTEND General Practice
DX: J18.9 Pneumonia, unspecified organism (principal); I10 Essential (primary) hypertension; F17.210 Nicotine dependence, cigarettes, uncomplicated; R53.1 Weakness; R11.2 Nausea with vomiting, unspecified; R51 Headache; R26.0 Ataxic gait; G93.89 Other specified disorders of brain
CPT/HCPCS: 74177; 96361; 96374; 99285; 85025; 81001; 36415; 80053; 84484; Q9967 ×2; A9270; J7030; J2405; 70450; 80048; 83605; 86140; 87040; 87070; 87077; 87186; 87205; 93005; 93010; 94640; J0696; J1650